=== PATIENT | female | born 1980 | race Caucasian/White ===

== ENCOUNTER 2022-11-22 13:11 | Emergency (ER) | payer OTHER ==
--- NOTE | 2022-11-22 14:12 | XRAY Report ---
PROCEDURE: Knee 4 View LT INDICATIONS: Trauma TECHNIQUE: 4 views of the left knee(s) were acquired. COMPARISON: None. FINDINGS: Bones: No fractures or dislocations. No patella subluxation. No suspicious bony lesions. Soft tissues: Small to moderate suprapatellar joint effusion is seen. No suspicious soft tissue maria r cifications. IMPRESSION: No acute left knee fracture or dislocation. Small to moderate suprapatellar joint effusi on. Reviewed by: George Steel MD on 11/22/2022 2:11 PM PDT Approved by: George Steel MD on 11/22/2022 2:11 PM PDT Station ID: [id number]
--- NOTE | 2022-11-22 14:13 | XRAY Report ---
PROCEDURE: Ankle 3 View LT INDICATIONS: Trauma TECHNIQUE: 3 views of the ankle were acquired. COMPARISON: None FINDINGS: Bones: No fractures or dislocations. Ankle mortise is normally aligned. No suspicious bony lesions . Small plantar and dorsal calcaneal enthesophytes are seen. Soft tissues: Lateral ankle soft tissue swelling is noted. No tibiotalar joint effusion. Achilles t endon appears normal. IMPRESSION: Lateral ankle soft tissue swelling. No ankle fracture or dislocation. Small calcaneal en thesophytes. Intact ankle mortise. Reviewed by: George Steel MD on 11/22/2022 2:12 PM PDT Approved by: George Steel MD on 11/22/2022 2:12 PM PDT Station ID: [id number]
--- NOTE | 2022-11-22 15:47 | ED Physician Documentation ---
PD HPI LOWER EXT INJURY - Stated complaint Stated Complaint: L KNEE AND ANKLE PX - Chief complaint Chief Complaint: Trauma Ext - History obtained from History obtained from: Patient - History of Present Illness PD HPI LOW EXT INJURY LOCATION: Left, Ankle - Additional information Additional information: Pt is a 42 yo F presenting for evaluation of L ankle and L knee pain since yesterday. She was in her yard and accidentally stepped in a hole twisting her ankle. She did not fall. She denies prior injuries to the affected leg. She denies injuries elsewhere. She tried ibuprofen prior to arrival without improvement. Reports knee started to ache after ankle. Review of Systems Constitutional: denies: Fever Cardiac: denies: Chest pain / pressure Respiratory: denies: Dyspnea GI: denies: Abdominal Pain Musculoskeletal: reports: Extremity pain Neurologic: denies: Head injury PD PAST MEDICAL HISTORY - Present Medications Home Medications: Ambulatory Orders Medication Instructions Recorded Confirmed Oxycodone HCl/Acetaminophen 1 each PO Q6H PRN #5 tablet 11/22/22 [Percocet 5-325 mg Tablet] Venlafaxine HCl 3 tab PO DAILY 11/22/22 11/22/22 - Allergies Allergies/Adverse Reactions: Allergies Allergy/AdvReac Type Severity Reaction Status Date / Time No Known Drug Allergies Allergy Verified 11/22/22 13:25 PD ED PE NORMAL - General General: Alert and oriented X 3, No acute distress, Well developed/nourished - HEENT HEENT: Atraumatic - Neck Neck: Supple, no meningeal sign - Cardiac Cardiac: Strong equal pulses - Respiratory Respiratory: No respiratory distress - Derm Derm: Warm and dry - Extremities Extremities: Other (Mild swelling/Tenderness to lateral L ankle; normal ROM of L ankle and L knee; pedal pulses intact; compartments of extremity are soft; no tib/fib tenderness, no tenderness over foot; sensation intact) Results - Vitals Vitals: Vital Signs - 24 hr 11/22/22 11/22/22 13:23 15:58 Temperature 36.2 C L 36.6 C Heart Rate 108 H 93 Respiratory 14 18 Rate Blood Pressure 129/81 H 122/78 O2 Saturation 96 100 Oxygen O2 Source Room air PD Medical Decision Making - ED course Complexity details: reviewed results ED course: Pt with L ankle and knee pain after stepping wrong in hole. I reviewed Xrays of affected areas and see no signs of fracture or dislocation. Pt likely has sprain and counseled on continued supportive care. Pt given air cast and crutches. She is advised on concerning symptoms to return for and need for follow up with PCP. Departure - Departure Disposition: 01 Home, Self Care Clinical Impression: Left ankle injury Condition: Stable Instructions: ED Sprain Ankle Prescriptions: Oxycodone HCl/Acetaminophen [Percocet 5-325 mg Tablet] 1 each PO Q6H PRN #5 tablet PRN Reason: pain Comments: Your x-ray is negative for a broken or out of place bone. You could have injury to other structures of the ankle such as a ligament or tendon. We have placed you into an Aircast and given you crutches. I recommend staying off the ankle if it is hurting to put weight on it.I would recommend close follow-up with your primary care. I have sent a small amount of narcotic pain medicine at [facility] which I could recommend using at night if needed. Do not work or drive while on this medication. I am prescribing a short course of narcotic pain medication for you. These are potentially dangerous and addictive medications that should be used carefully. These medications may constipate you. Take an dqsk-mba-[id number] stool softener (docusate) twice daily with plenty of water while taking these medications. If you go 24 hours without a bowel movement, take [id number] miralax, per package instructions. Do not drink or drive while taking these medications. If you received narcotic or sedating medications while in the emergency department, do not drive for 24 hours. Store this medication in a safe, secure place and out of reach of children. It is a violation of federal law to give or sell this medication to another person or to use in a manner other than prescribed. The ED will not refill narcotic prescriptions, including prescriptions lost or stolen. To dispose of unwanted medications: 1. [facility] at [address] in [place] has a medication drop box. They accept prescription medications (in pill form) Saturday through Saturday 9:00 a.m. to 5:00 p.m. 2. The [facility] accepts prescription medications (in pill form only) for disposal year round. Call for more information. 3. Contact the [facility] for the next [employer] sponsored prescription drug collection event. , x7310, or x7310; Note that many narcotic pain relievers also contain Tylenol/acetaminophen. Please ensure that your total dose of acetaminophen from all sources does not exceed 3 g (3000 mg) per day. Discharge Date/Time: 11/22/22 16:26
[2022-11-22 15:59] VITALS: BP 122/78
== END 2022-11-22 16:26 | disposition home or self-care (01) ==
LOC: ED 13:11
DX: S99.912A Unspecified injury of left ankle, initial encounter (principal); X50.1XXA Overexertion from prolonged static or awkward postures, initial encounter; Y93.89 Activity, other specified
CPT/HCPCS: 99283

== ENCOUNTER 2023-11-25 17:30 | Outpatient (CLI) | payer OTHER | END 2023-11-25 17:45 | disposition home or self-care (01) | LOC: LAB.N 17:30 | PROVIDERS: ATTEND Physician Assistant Medical | DX: N39.0 Urinary tract infection, site not specified (principal) | CPT/HCPCS: 87086 ==

== ENCOUNTER 2023-12-12 17:47 | Emergency (ER) | payer OTHER ==
[2023-12-12 18:02] VITALS: O2SAT 99
[2023-12-12 18:24] LABS: BASOPHILS # (AUTO) 0.1 10^3/uL (0.0-0.1); BASOPHILS % (AUTO) 0.4 %; EOSINOPHILS # (AUTO) 0.9 10^3/uL (0.0-0.7); EOSINOPHILS % (AUTO) 8.3 %; HCT - HEMATOCRIT 39.7 % (37.0-47.0); HGB - HEMOGLOBIN 11.9 g/dL (12.0-16.0); LYMPHOCYTES # (AUTO) 2.7 10^3/uL (1.5-3.5); LYMPHOCYTES % (AUTO) 24.4 %; MEAN CORPUSCULAR HEMOGLOBIN 24.8 pg (27.0-31.0); MEAN CORPUSCULAR VOLUME 82.9 fL (81.0-99.0); MEAN PLATELET VOLUME 9.3 fL (7.9-10.8); MONOCYTES # (AUTO) 0.8 10^3/uL (0.0-1.0); MONOCYTES % (AUTO) 6.7 %; NEUTROPHILS # (AUTO) 6.7 10^3/uL (1.5-6.6); NEUTROPHILS % (AUTO) 59.8 %; PLT - PLATELET COUNT 290 10^3/uL (130-450); RED BLOOD COUNT 4.79 10^6/uL (4.20-5.40); WHITE BLOOD COUNT 11.1 x10^3/uL (4.8-10.8)
[2023-12-12 18:34] LABS: BILIRUBIN,URINE NEGATIVE (NEGATIVE); GLUCOSE, URINE (UA) NEGATIVE (NEGATIVE); KETONES,URINE (UA) NEGATIVE (NEGATIVE); LEUKOCYTE ESTERASE, URINE TRACE (NEGATIVE); NITRITE,URINE NEGATIVE (NEGATIVE); OCCULT BLOOD,URINE NEGATIVE (NEGATIVE); PH,URINE 5.5 PH (5.0-7.5); PROTEIN,URINE NEGATIVE (NEGATIVE); UROBILINOGEN,URINE 0.2 (NORMAL) E.U./dL (NORMAL)
[2023-12-12 18:39] LABS: CLARITY,URINE CLEAR (CLEAR)
[2023-12-12 18:41] LABS: ALBUMIN 4.3 g/dL (3.2-5.5); ALBUMIN/GLOBULIN RATIO 1.6 (1.0-2.2); BILIRUBIN,TOTAL 0.2 mg/dL (0.2-1.0); CALCIUM 9.5 mg/dL (8.5-10.3); CREATININE 0.7 mg/dL (0.6-1.3); POTASSIUM 3.6 mmol/L (3.5-4.5)
[2023-12-12 18:48] LABS: BACTERIA,URINE Few /HPF (None Seen); RBC,URINE 0-5 /HPF (0-5); SQUAMOUS EPITHELIAL CELL,UR FEW Squamous (<= Few)
[2023-12-12] MEDS ORDERED: iohexoL-300 100 ML VIAL ONE (18:53)
[2023-12-12 20:59] VITALS: BP 112/74
[2023-12-12] MEDS: KETOROLAC 30 MG/ML VIAL IVP STA (21:49)
--- NOTE | 2023-12-12 21:52 | ED Physician Documentation ---
PD HPI ABD PAIN - Stated complaint Stated Complaint: LOWER ABD PX - Chief complaint Chief Complaint: Abd Pain - Additional information Additional information: 43-year-old female with no pertinent past medical history presents to the emergency department for left pelvic pain. Patient says that the pain started sometime last evening. She went emergently into the walk-in clinic and they sent her here for possible further more advanced imaging. Patient does still have her period last menses was about 2 weeks ago. She denies any possibility of being as she is not sexually active for about a year now and does report sexual activity with only females. She denies any fevers or chills no nausea or vomiting she is in no pain at this point in time she says it is very specific to 1 spot on her left pelvic region. PD PAST MEDICAL HISTORY - Past Medical History Past Medical History: Yes Neuro: Migraines Endocrine/Autoimmune: HyPOthyroidism : Kidney stones - Past Surgical History Past Surgical History: No - Present Medications Home Medications: Ambulatory Orders Medication Instructions Recorded Confirmed Venlafaxine HCl 3 tab PO DAILY 11/22/22 12/12/23 Ferrous Sulfate [Feosol] 325 mg PO DAILY 12/12/23 12/12/23 Levothyroxine Sodium [Synthroid] 25 mcg PO DAILY 12/12/23 12/12/23 Meclizine HCl [Antivert] 25 mg PO PRN PRN 12/12/23 12/12/23 Naltrexone HCl 50 mg PO DAILY 12/12/23 12/12/23 Ondansetron [Ondansetron Odt] 8 mg PO PRN PRN 12/12/23 12/12/23 ZOLMitriptan [Zomig] 2.5 mg PO PRN PRN 12/12/23 12/12/23 - Allergies Allergies/Adverse Reactions: Allergies Allergy/AdvReac Type Severity Reaction Status Date / Time No Known Drug Allergies Allergy Verified 12/12/23 17:58 - Social History Does the pt smoke?: Yes Smoking Status: Current every day smoker PD ED PE NORMAL - Vitals Vital signs reviewed: Yes - General General: Alert and oriented X 3, No acute distress, Well developed/nourished - Cardiac Cardiac: RRR - Respiratory Respiratory: No respiratory distress, Clear bilaterally - Abdomen Abdomen: Normal bowel sounds, Soft, Non tender, Non distended, No organomegaly - Psych Psych: Normal mood Results - Vitals Vitals: Vital Signs - 24 hr 12/12/23 12/12/23 12/12/23 17:52 19:57 21:00 Temperature 36.2 C L 36.4 C L Heart Rate 95 77 74 Respiratory 16 13 14 Rate Blood Pressure 131/85 H 112/74 O2 Saturation 99 99 99 Oxygen O2 Source Room air - Labs Labs: Microbiology 12/12/23 18:27 Urine Culture - Preliminary Urine,Clean Catch CULTURE IN PROGRESS. RESULTS TO FOLLOW. Laboratory Tests 12/12/23 12/12/23 12/12/23 18:19 18:19 18:19 WBC 11.1 H RBC 4.79 Hgb 11.9 L Hct 39.7 MCV 82.9 MCH 24.8 L MCHC 30.0 L RDW 19.0 H Plt Count 290 MPV 9.3 Neut # (Auto) 6.7 H Lymph # (Auto) 2.7 [place] # (Auto) 0.8 Eos # (Auto) 0.9 H Baso # (Auto) 0.1 Absolute Nucleated RBC 0.00 Nucleated RBC % 0.0 Sodium 139 Potassium 3.6 Chloride 107 Carbon Dioxide 27 Anion Gap 5.0 L BUN 13 Creatinine 0.7 Estimated GFR (MDRD) 91 Glucose 92 Calcium 9.5 Total Bilirubin 0.2 AST 10 ALT 7 L Alkaline Phosphatase 59 Total Protein 7.0 Albumin 4.3 Globulin 2.7 Albumin/Globulin Ratio 1.6 Lipase 22 Beta HCG, Quant < 0.6 Urine Color Urine Clarity Urine pH Ur Specific [place] Urine Protein Urine Glucose (UA) Urine Ketones Urine Occult Blood Urine Nitrite Urine Bilirubin Urine Urobilinogen Ur Leukocyte Esterase Urine RBC Urine WBC Ur Squamous Epith Cells Urine Bacteria Ur Microscopic Review Urine Culture Comments 12/12/23 18:27 WBC RBC Hgb Hct MCV MCH MCHC RDW Plt Count MPV Neut # (Auto) Lymph # (Auto) [place] # (Auto) Eos # (Auto) Baso # (Auto) Absolute Nucleated RBC Nucleated RBC % Sodium Potassium Chloride Carbon Dioxide Anion Gap BUN Creatinine Estimated GFR (MDRD) Glucose Calcium Total Bilirubin AST ALT Alkaline Phosphatase Total Protein Albumin Globulin Albumin/Globulin Ratio Lipase Beta HCG, Quant Urine Color YELLOW Urine Clarity CLEAR Urine pH 5.5 Ur Specific [place] >=1.030 H Urine Protein NEGATIVE Urine Glucose (UA) NEGATIVE Urine Ketones NEGATIVE Urine Occult Blood NEGATIVE Urine Nitrite NEGATIVE Urine Bilirubin NEGATIVE Urine Urobilinogen 0.2 (NORMAL) Ur Leukocyte Esterase TRACE H Urine RBC 0-5 Urine WBC 6-10 H Ur Squamous Epith Cells FEW Squamous Urine Bacteria Few Ur Microscopic Review INDICATED Urine Culture Comments INDICATED - Rads (name of study) Pelvic ultrasound Relevant Findings:: Final report received, EMP independent interpretation of test, Other PD Medical Decision Making - ED course ED course: 43-year-old female presents emergency department for left pelvic pain. Differentials include but are not limited to, urinary tract infection, pyelonephritis, ovarian torsion, ovarian cyst. Labs were complete and did not show any significant abnormalities, mild leukocytosis 11.1 mild anemia hemoglobin 11.9 neutrophils slightly elevated at 6 .7 CMP is overall unremarkable urinalysis has trace positive leukocytes no nitrites patient denies any dysuria or bladder pain so we will hold off on treating for urinary tract infection at this point in time. Pelvic ultrasound was complete which did reveal 2 cyst on the left ovary one of them being hemorrhagic. Her pain was treated with ketorolac and she did notice significant improvement with that. Patient was given return precautions she is told to follow-up with primary care provider to have repeat ultrasound in a couple months for further evaluation to see if the cyst has gotten better or worse. At this point in time she is safe for discharge all questions answered Departure - Departure Disposition: 01 Home, Self Care Clinical Impression: Pelvic pain in female, Hemorrhagic cyst of ovary Condition: Stable Instructions: ED Pelvic Pain UKO Comments: Thank you for trusting us with your care, we have evaluated you for your left lower quadrant pain. We have completed an ultrasound and we have found 2 ovarian cysts on yout let ovary one being hemorrhagic. We also completed labs and urinalysis and not seeing any acute abnormalities. We have given you IV Toradol to help with the pain which appeared to help. Please help with your primary care provider for further evaluation of this and come back to the emergency department if pain gets any worse or if you start develop any fevers or chills, nausea vomiting or any other concerning symptoms. Forms: PCP List Discharge Date/Time: 12/12/23 22:34
--- NOTE | 2023-12-12 23:30 | Ultrasound Report ---
PROCEDURE: Pelvic w/Doppler Limited INDICATIONS: L pelvis pain TECHNIQUE: Real-time transabdominal scanning was performed of the pelvic organs, with image documentation. Dopp ler interrogation was performed of the ovaries bilaterally. COMPARISON: None. FINDINGS: Uterus: Uterus is anteverted and normal in size at 8.3 x 3.4 x 4.9 cm. The myometrium is homogeneou s. The endometrium measures 6.8 mm in combined thickness. Cervix and vagina are within normal limit s. Ovaries: The right ovary measures 3.2 x 1.7 x 2.1 cm, with a calculated ovarian volume of 5.8 cc. T he left ovary measures 6.5 x 2.9 x 5.6 cm, with a calculated ovarian volume of 55.4 cc. Appropriate blood flow to the ovaries with Doppler interrogation. Less than 12 follicles can be seen in each ov lex. No adnexal masses are seen. Complex cystic lesion measuring 3.8 x 3.2 x 3.4 cm. Additional thic k walled cystic lesion measuring 1.7 x 1.7 x 1.7 cm. Other: No pathologic free abdominal or pelvic fluid. IMPRESSION: 1.No definitive sonographic evidence of ovarian torsion. Normal sonographic appearance of the uterus. 2.Left ovarian complex cystic lesion measuring 3.8 x 3.2 x 3.4 cm which may represent a hemorrhagic c yst. Recommend a follow-up ultrasound in 6-8 weeks. 3.Left ovarian thick walled cyst measuring 1.7 x 1.7 x 1.7 cm. Attention on follow-up imaging. 4.No free fluid. Reviewed by: Lexx Velazquez MD on 12/12/2023 11:28 PM PDT Approved by: Lexx Velazquez MD on 12/12/2023 11:28 PM PDT Station ID: [id number]
== END 2023-12-12 22:34 | disposition home or self-care (01) ==
LOC: ED 17:47
DX: N83.202 Unspecified ovarian cyst, left side (principal); R10.2 Pelvic and perineal pain; E03.9 Hypothyroidism, unspecified; D72.829 Elevated white blood cell count, unspecified; F17.200 Nicotine dependence, unspecified, uncomplicated; Z79.899 Other long term (current) drug therapy
CPT/HCPCS: 36415; 80053; 81001; 81003; 83690; 84702; 85025; 87086; 93976; 96374; 99284

== ENCOUNTER 2024-02-12 10:55 | Emergency (ER) | payer OTHER ==
[2024-02-12 11:36] LABS: BASOPHILS % (AUTO) 0.5 %; EOSINOPHILS # (AUTO) 0.2 10^3/uL (0.0-0.7); EOSINOPHILS % (AUTO) 2.8 %; HCT - HEMATOCRIT 39.8 % (37.0-47.0); HGB - HEMOGLOBIN 12.6 g/dL (12.0-16.0); LYMPHOCYTES # (AUTO) 1.9 10^3/uL (1.5-3.5); MEAN CORPUSCULAR HEMOGLOBIN 27.3 pg (27.0-31.0); MEAN CORPUSCULAR HGB CONC 31.7 g/dL (32.0-36.0); MEAN CORPUSCULAR VOLUME 86.3 fL (81.0-99.0); MEAN PLATELET VOLUME 10.1 fL (7.9-10.8); MONOCYTES # (AUTO) 0.6 10^3/uL (0.0-1.0); MONOCYTES % (AUTO) 6.5 %; NEUTROPHILS # (AUTO) 5.7 10^3/uL (1.5-6.6); NEUTROPHILS % (AUTO) 67.8 %; PLT - PLATELET COUNT 301 10^3/uL (130-450); RED BLOOD COUNT 4.61 10^6/uL (4.20-5.40); RED CELL DISTRIBUTION WIDTH 16.8 % (12.0-15.0); WHITE BLOOD COUNT 8.5 x10^3/uL (4.8-10.8)
[2024-02-12 11:56] LABS: ALBUMIN 4.4 g/dL (3.2-5.5); ALBUMIN/GLOBULIN RATIO 1.9 (1.0-2.2); BILIRUBIN,TOTAL 0.5 mg/dL (0.2-1.0); CALCIUM 9.9 mg/dL (8.5-10.3); CREATININE 0.7 mg/dL (0.6-1.3); POTASSIUM 3.9 mmol/L (3.5-4.5); TOTAL PROTEIN 6.7 g/dL (6.4-8.9)
[2024-02-12 13:37] LABS: BILIRUBIN,URINE NEGATIVE (NEGATIVE); GLUCOSE, URINE (UA) NEGATIVE (NEGATIVE); KETONES,URINE (UA) NEGATIVE (NEGATIVE); LEUKOCYTE ESTERASE, URINE NEGATIVE (NEGATIVE); NITRITE,URINE NEGATIVE (NEGATIVE); OCCULT BLOOD,URINE NEGATIVE (NEGATIVE); PH,URINE 6.5 PH (5.0-7.5); PROTEIN,URINE NEGATIVE (NEGATIVE); UROBILINOGEN,URINE 0.2 (NORMAL) E.U./dL (NORMAL)
[2024-02-12 13:39] LABS: CLARITY,URINE CLEAR (CLEAR)
[2024-02-12 13:40] LABS: HCG UR QUAL NEGATIVE
--- NOTE | 2024-02-12 14:14 | ED Physician Documentation ---
PD HPI FEMALE - Stated complaint Stated Complaint: LOWER ABD PX,NAUSEA - Chief complaint Chief Complaint: Abd Pain - Additional information Additional information: 43-year-old female presents emergency department for pelvic pain with mild nausea has been ongoing for about 5 days. Patient says that she is just getting off of her menses and says that she was here for about a month ago and was also provider then where she was diagnosed with an ovarian cyst. Patient has not had any follow-up has not started any control with no new sexual partners no new medications. No vaginal discharge no vaginal bleeding no dysuria no CVA te nderness. No fevers or chills. PD PAST MEDICAL HISTORY - Past Medical History Past Medical History: Yes Neuro: Migraines Endocrine/Autoimmune: HyPOthyroidism [employer]ER: Ovarian cysts : Kidney stones - Past Surgical History Past Surgical History: No - Present Medications Home Medications: Ambulatory Orders Medication Instructions Recorded Confirmed Venlafaxine HCl 3 tab PO DAILY 11/22/22 12/12/23 Ferrous Sulfate [Feosol] 325 mg PO DAILY 12/12/23 12/12/23 Levothyroxine Sodium [Synthroid] 25 mcg PO DAILY 12/12/23 12/12/23 Meclizine HCl [Antivert] 25 mg PO PRN PRN 12/12/23 12/12/23 Naltrexone HCl 50 mg PO DAILY 12/12/23 12/12/23 Ondansetron [Ondansetron Odt] 8 mg PO PRN PRN 12/12/23 12/12/23 ZOLMitriptan [Zomig] 2.5 mg PO PRN PRN 12/12/23 12/12/23 - Allergies Allergies/Adverse Reactions: Allergies Allergy/AdvReac Type Severity Reaction Status Date / Time No Known Drug Allergies Allergy Verified 02/12/24 11:12 - Social History Does the pt smoke?: Yes Smoking Status: Current every day smoker Does the pt drink ETOH?: Yes - Immunizations Immunizations are current?: Yes PD ED PE NORMAL - Vitals Vital signs reviewed: Yes - General General: Alert and oriented X 3, No acute distress, Well developed/nourished - HEENT HEENT: Atraumatic, PERRL - Neck Neck: Supple, no meningeal sign, No bony TTP - Cardiac Cardiac: RRR, No murmur - Abdomen Abdomen: Normal bowel sounds, Soft, Non distended, No organomegaly, Other (Generalized suprapubic tenderness) - Back Back: No CVA TTP - Psych Psych: Normal mood, Normal affect Results - Vitals Vitals: Vital Signs - 24 hr 02/12/24 02/12/24 02/12/24 11:08 14:31 16:50 Temperature 36.7 C 36.3 C L Heart Rate 106 H 76 73 Respiratory 16 17 18 Rate Blood Pressure 127/78 112/80 113/78 O2 Saturation 99 95 97 Oxygen O2 Source Room air - Labs Labs: Laboratory Tests 02/12/24 02/12/24 02/12/24 11:11 11:30 11:30 WBC 8.5 RBC 4.61 Hgb 12.6 Hct 39.8 MCV 86.3 MCH 27.3 MCHC 31.7 L RDW 16.8 H Plt Count 301 MPV 10.1 Neut # (Auto) 5.7 Lymph # (Auto) 1.9 [place] # (Auto) 0.6 Eos # (Auto) 0.2 Baso # (Auto) 0.0 Absolute Nucleated RBC 0.00 Nucleated RBC % 0.0 Sodium 139 Potassium 3.9 Chloride 106 Carbon Dioxide 27 Anion Gap 6.0 BUN 13 Creatinine 0.7 Estimated GFR (MDRD) 91 Glucose 84 Calcium 9.9 Total Bilirubin 0.5 AST 11 ALT 7 L Alkaline Phosphatase 46 Total Protein 6.7 Albumin 4.4 Globulin 2.3 Albumin/Globulin Ratio 1.9 Lipase 12 Urine Color YELLOW Urine Clarity CLEAR Urine pH 6.5 Ur Specific [place] 1.025 Urine Protein NEGATIVE Urine Glucose (UA) NEGATIVE Urine Ketones NEGATIVE Urine Occult Blood NEGATIVE Urine Nitrite NEGATIVE Urine Bilirubin NEGATIVE Urine Urobilinogen 0.2 (NORMAL) Ur Leukocyte Esterase NEGATIVE Ur Microscopic Review NOT INDICATED Urine Culture Comments NOT INDICATED Urine HCG, Qual NEGATIVE - Rads (name of study) Non OB pelvic ultrasound Relevant Findings:: Final report received, EMP independent interpretation of test, Other (No ovarian torsion no adnexal masses or cyst visualized.) PD Medical Decision Making - ED course ED course: 43-year-old female presents emergency department for pelvic pain and tenderness. Ultrasounds complete for further evaluation and no acute findings were visualized. She previously had an ovarian cyst and originally the preliminary engagement lead did report that there was a possible ovarian cyst but radiologist is not reading this. I am not seeing any cyst myself. Labs are unremarkable urine is unremarkable. Patient is told to follow-up with [facility] outpatient to consider starting possible control to help with her pelvic pain that tends to happen around menses. Return precautions given all questions answered safe for discharge. Departure - Departure Disposition: 01 Home, Self Care Clinical Impression: Ovarian cyst Instructions: Cysts Ovarian Comments: They have dressings with your care. We have given you a Toradol shot to help with your abdominal pain and discomfort. I will call you with more detailed information about your ultrasound results but at this point in time you are safe for discharge. Please follow-up with [facility] or women's health to consider getting on control as you have been having this pelvic pain around your cycles. Forms: PCP List Discharge Date/Time: 02/12/24 16:50
[2024-02-12] MEDS: ACETAMINOPHEN 325 MG TABLET PO STA (14:54)
[2024-02-12] MEDS: KETOROLAC 30 MG/ML VIAL IM STA (14:54)
[2024-02-12] MEDS: ONDANSETRON ODT 4 MG TABLET TL STA (14:54)
--- NOTE | 2024-02-12 16:46 | Ultrasound Report ---
PROCEDURE: Pelvic w/Doppler Complete INDICATIONS: left pelvic pain TECHNIQUE: Real-time scanning was performed of the pelvic organs, with image documentation. Doppler interrogatio n was performed of the ovaries bilaterally. COMPARISON: Pelvic ultrasound 12/12/2023. FINDINGS: Uterus: Uterus is anteverted and normal in size at 8.3 x 3.0 x 5.3 cm. The myometrium is homogeneou s. The endometrium measures 0.8 mm in combined thickness. Ovaries: The right ovary measures 2.5 x 1.7 x 1.8 cm, with a calculated ovarian volume of point cc. The left ovary measures 1.7 x 1.3 x 1.7 cm, with a calculated ovarian volume of 1.9 cc. Appropriate blood flow to the ovaries with Doppler interrogation. Less than 12 follicles can be seen in each o vary. No adnexal masses are seen. No cystic lesions measuring greater than 3 cm. Doppler color flow imaging demonstrates intact blood flow to the bilateral ovaries. Other: No pathologic free abdominal or pelvic fluid. IMPRESSION: Limited transabdominal evaluation of the uterus and ovaries. No sonographic evidence of ovarian torsi on. Reviewed by: Mamta Mckee MD, PhD on 02/12/2024 4:45 PM PDT Approved by: Mamta Mckee MD, PhD on 02/12/2024 4:45 PM PDT Station ID: [id number]
[2024-02-12 16:51] VITALS: BP 113/78; O2SAT 97
== END 2024-02-12 16:50 | disposition home or self-care (01) ==
LOC: ED 10:55
DX: N83.209 Unspecified ovarian cyst, unspecified side (principal); F17.200 Nicotine dependence, unspecified, uncomplicated; E03.9 Hypothyroidism, unspecified; Z79.899 Other long term (current) drug therapy
CPT/HCPCS: 36415; 76856; 80053; 81003; 81025; 83690; 85025; 93975; 96372; 99284; A9270; Q0162; 81001; 87086